=== PATIENT | male | born 1995 | race Caucasian/White ===

== ENCOUNTER 2017-08-28 10:18 | Emergency (ER) | payer OTHER ==
[~2017-08-28] VITALS: Ht 185.4 cm; Wt 65.0 kg
[2017-08-28 10:29] VITALS: BP 122/102; PULSE 115; RESP 20; TEMP 98.7; O2SAT 100
[2017-08-28 10:59] LABS: AUTOMATED NEUTROPHIL # 7.6 TH/MM3 (1.8-7.7); BASOPHIL # 0.1 TH/MM3 (0-0.2); BASOPHIL % 0.4 % (0.0-2.0); EOSINOPHIL # 0.1 TH/MM3 (0-0.4); EOSINOPHIL % 0.7 % (0.0-4.0); HEMATOCRIT 45.5 % (39.0-51.0); HEMOGLOBIN 15.1 GM/DL (13.0-17.0); MEAN CELL VOLUME 78.9 FL (80.0-100.0); MEAN CORPUSCULAR HEMOGLOBIN 26.2 PG (27.0-34.0); MEAN CORPUSCULAR HGB CONC 33.2 % (32.0-36.0); MEAN PLATELET VOLUME 7.8 FL (7.0-11.0); MONO % 7.7 % (0.0-8.0); MONOCYTE # 0.9 TH/MM3 (0-0.9); NEUT % 65.2 % (16.0-70.0); PLATELET COUNT 266 TH/MM3 (150-450); RED BLOOD COUNT 5.77 MIL/MM3 (4.50-5.90); RED CELL DISTRIBUTION WIDTH 14.9 % (11.6-17.2); WHITE BLOOD COUNT 11.6 TH/MM3 (4.0-11.0)
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
[2017-08-28 11:24] LABS: ALBUMIN 4.9 GM/DL (3.4-5.0); AST (GOT) 30 U/L (15-37); BLOOD UREA NITROGEN 19 MG/DL (7-18); CALCIUM 9.1 MG/DL (8.5-10.1); CHLORIDE 106 MEQ/L (98-107); CREATININE 1.54 MG/DL (0.60-1.30); GLOMERULAR FILTRATION RATE 56 ML/MIN (>89); GLUCOSE,RANDOM 108 MG/DL (74-106); SODIUM (NA) 142 MEQ/L (136-145)
[2017-08-28 11:27] LABS: ACETAMINOPHEN LESS THAN 2.0 MCG/ML (10.0-30.0); ALKALINE PHOSPHATASE 93 U/L (45-117); ALT (GPT) 24 U/L (12-78); TOTAL BILIRUBIN ADULT 0.6 MG/DL (0.2-1.0); TOTAL PROTEIN 8.4 GM/DL (6.4-8.2)
[2017-08-28 12:30] VITALS: BP 102/68; PULSE 85; RESP 19; O2SAT 98
[2017-08-28 13:57] LABS: BLOOD, URINE NEG (NEG); GLUCOSE,URINE NEG (NEG); HYALINE CAST, URINE 21 /lpf (RARE); KETONE, URINE 10 mg/dL (NEG); MUCUS URINE FEW /lpf (OCC); NITRITE,URINE NEG (NEG); PH, URINE 5.5 (5.0-8.5); SQUAMOUS EPITHELIAL CELL URINE <1 /hpf (0-5); URINE COLOR YELLOW (YELLW/STRAW); URINE LEUKOCYTE ESTERASE NEG (NEG)
[2017-08-28 14:01] LABS: BILIRUBIN, URINE NEG (NEG)
[2017-08-28] MEDS ORDERED: NICOTINE 21 MG/24 HR PATCH T-DERMAL ONE (14:30)
[2017-08-28] MEDS ORDERED: NAPROXEN 500 MG TAB PO ONE (17:30)
[2017-08-28 17:34] VITALS: BP 132/91; PULSE 110; RESP 18; O2SAT 100
--- NOTE | 2017-08-28 18:45 | PD ---
History of Present Illness Chief Complaint: Psychiatric Symptoms Time Seen by Provider: 18:30 Travel History International Travel<30 Days: No Contact w/Intl Traveler<30days: No Known affected area: No Legal Status Legal Status: Duggan Act D[employer] Act Signed By: Audra Wayne Dug[place] Act Comment: Officer Tran Meray # [id number] History of Present Illness: This is a 22-year-old single male who presents under a Duggan act to this facility for reportedly making suicidal gestures and statements. Patient has not been seen at this facility previously. Reviewed electronic medical records, labs, and discussed case with staff. PFSH Past Medical History Medical History: Denies Significant Hx Diminished Hearing: No Neurologic: Yes Migraines: Yes Tetanus Vaccination: < 5 Years Influenza Vaccination: Yes Psychiatric History Psychiatric History Hx Psychiatric Treatment: Pt states he had psychiatric care when he was a juvinelle because he was court ordered. History of Inpatient Treatment: No Social History Hx Alcohol Use: No Hx Tobacco Use: Yes (1 PPD) Hx Substance Use: Yes Substance Use Type: Marijuana, Amphetamines-Stimulants, Nicotine/Cigarettes Other Substances Used: Pt denies any past treatment Hx of Substance Use Treatment: No Allergies-Medications (Allergen,Severity, Reaction): Coded Allergies: No Known Allergies (Unverified , 08/28/17) Reported Meds & Prescriptions Reported Meds & Active Scripts Active No Active Prescriptions or Reported Medications MDM Medical Decision Making Medical Record Reviewed: Yes Assessment/Plan This is a 22-year-old single, male who presents under Duggan act to this facility for reportedly making suicidal gestures. Upon examination today patient is awake, alert and oriented 4. His speech is clear, logical, and organized. His mood and affect are slightly anxious although I attribute this to his being kept in J pod. There is no internal stimulation nor thought blocking. He denies suicidal ideation, homicidal ideation, auditory or visual hallucinations. I can elicit no delusional material. Patient does exhibit some cluster B type characteristics. Obtain corroborating information from patient's grandmother. Consulted with Dr. De La Torre as patient no longer meets Duggan act criteria. Dr. De La Torre agrees with my assessment and has lifted the Duggan act. Patient will be directed to follow-up at [facility] if he is to stay in the area. He has reported that he wants to return to [place]. He will be advised to return to this facility should his condition worsen. Orders Orders Complete Blood Count With Diff (08/28/17 10:27) Comprehensive Metabolic Panel (08/28/17 10:27) Urinalysis - C+S If Indicated (08/28/17 10:27) Psych Screen (08/28/17 10:27) Diet Regular Basic (08/28/17 Lunch) Drug Screen, Random Urine (08/28/17 10:27) Alcohol (Ethanol) (08/28/17 10:27) Salicylates (Aspirin) (08/28/17 10:) Tylenol (Acetaminophen) (08/28/17 10:) Nicotine 21 Mg Patch.24 Hr (Habitrol 21 (08/28/17 14:30) Diet Regular Basic (08/28/17 Dinner) Naproxen (Naprosyn) (08/28/17 17:30) Results Vital Signs Date Time Temp Pulse Resp B/P (MAP) Pulse Ox O2 Delivery O2 Flow Rate FiO2 08/28/17 17:34 110 18 132/91 (105) 100 Room Air 08/28/17 12:30 85 19 102/68 (79) 98 Room Air 08/28/17 10:29 98.7 115 20 122/102 (109) 100 Laboratory Tests Test 08/28/17 10:37 08/28/17 13:06 White Blood Count 11.6 Red Blood Count 5.77 Hemoglobin 15.1 Hematocrit 45.5 Mean Corpuscular Volume 78.9 Mean Corpuscular Hemoglobin 26.2 Mean Corpuscular Hemoglobin Concent 33.2 Red Cell Distribution Width 14.9 Platelet Count 266 Mean Platelet Volume 7.8 Neutrophils (%) (Auto) 65.2 Lymphocytes (%) (Auto) 26.0 Monocytes (%) (Auto) 7.7 Eosinophils (%) (Auto) 0.7 Basophils (%) (Auto) 0.4 Neutrophils # (Auto) 7.6 Lymphocytes # (Auto) 3.0 Monocytes # (Auto) 0.9 Eosinophils # (Auto) 0.1 Basophils # (Auto) 0.1 CBC Comment DIFF FINAL Differential Comment Blood Urea Nitrogen 19 Creatinine 1.54 Random Glucose 108 Total Protein 8.4 Albumin 4.9 Calcium Level 9.1 Alkaline Phosphatase 93 Aspartate Amino Transf (AST/SGOT) 30 Alanine Aminotransferase (ALT/SGPT) 24 Total Bilirubin 0.6 Sodium Level 142 Potassium Level 3.7 Chloride Level 106 Carbon Dioxide Level 25.0 Anion Gap 11 Estimat Glomerular Filtration Rate 56 Salicylates Level 3.1 Acetaminophen Level LESS THAN 2.0 Ethyl Alcohol Level LESS THAN 3 Urine Color YELLOW Urine Turbidity HAZY Urine pH 5.5 Urine Specific [place] 1.038 Urine Protein 30 Urine Glucose (UA) NEG Urine Ketones 10 Urine Occult Blood NEG Urine Nitrite NEG Urine Bilirubin NEG Urine Urobilinogen 2.0 Urine Leukocyte Esterase NEG Urine RBC 2 Urine WBC 2 Urine Squamous Epithelial Cells <1 Urine Hyaline Casts 21 Urine Mucus FEW Microscopic Urinalysis Comment CULT NOT INDICATED Urine Opiates Screen NEG Urine Barbiturates Screen NEG Urine Amphetamines Screen POS Urine Benzodiazepines Screen NEG Urine Cocaine Screen NEG Urine Cannabinoids Screen POS Diagnosis Primary Impression: Substance induced mood disorder Additional Impression: Personality disorder Psychiatrically Cleared: Yes Prescriptions No Active Prescriptions or Reported Meds Problem Qualifiers Tawnya Love August 28, 2017 18:45
--- NOTE | 2017-08-28 20:49 | PD ---
Physical Exam Date Seen by Provider: August 28, 2017 Time Seen by Provider: 20:47 Narrative GENERAL: This is a well-nourished, well-developed patient, in no apparent distress. SKIN: No rashes, ecchymoses or lesions. Warm and dry. HEAD: Atraumatic. Normocephalic. EYES: PERRL, EOMI, no discharge or injection. No scleral icterus. EARS: Clear NOSE: Nasal turbinates appear normal. THROAT: Mucosa pink and moist. Airway patent. NECK: Trachea midline. supple, moves head freely. LUNGS: Clear to auscultation. CV: Regular in rhythm. ABDOMEN: Soft nontender. EXT: No clubbing cyanosis or edema. Data Data Last Documented VS Vital Signs Date Time Temp Pulse Resp B/P (MAP) Pulse Ox O2 Delivery O2 Flow Rate FiO2 08/28/17 19:31 08/28/17 17:34 110 18 100 Room Air 08/28/17 10:29 98.7 Orders Orders Complete Blood Count With Diff (08/28/17 10:27) Comprehensive Metabolic Panel (08/28/17 10:27) Urinalysis - C+S If Indicated (08/28/17 10:27) Psych Screen (08/28/17 10:27) Diet Regular Basic (08/28/17 Lunch) Drug Screen, Random Urine (08/28/17 10:27) Alcohol (Ethanol) (08/28/17 10:27) Salicylates (Aspirin) (08/28/17 10:27) Tylenol (Acetaminophen) (08/28/17 10:27) Nicotine 21 Mg Patch.24 Hr (Habitrol 21 (08/28/17 14:30) Diet Regular Basic (08/28/17 Dinner) Naproxen (Naprosyn) (08/28/17 17:30) Labs Laboratory Tests Test 08/28/17 10:37 08/28/17 13:06 White Blood Count 11.6 TH/MM3 Red Blood Count 5.77 MIL/MM3 Hemoglobin 15.1 GM/DL Hematocrit 45.5 % Mean Corpuscular Volume 78.9 FL Mean Corpuscular Hemoglobin 26.2 PG Mean Corpuscular Hemoglobin Concent 33.2 % Red Cell Distribution Width 14.9 % Platelet Count 266 TH/MM3 Mean Platelet Volume 7.8 FL Neutrophils (%) (Auto) 65.2 % Lymphocytes (%) (Auto) 26.0 % Monocytes (%) (Auto) 7.7 % Eosinophils (%) (Auto) 0.7 % Basophils (%) (Auto) 0.4 % Neutrophils # (Auto) 7.6 TH/MM3 Lymphocytes # (Auto) 3.0 TH/MM3 Monocytes # (Auto) 0.9 TH/MM3 Eosinophils # (Auto) 0.1 TH/MM3 Basophils # (Auto) 0.1 TH/MM3 CBC Comment DIFF FINAL Differential Comment Blood Urea Nitrogen 19 MG/DL Creatinine 1.54 MG/DL Random Glucose 108 MG/DL Total Protein 8.4 GM/DL Albumin 4.9 GM/DL Calcium Level 9.1 MG/DL Alkaline Phosphatase 93 U/L Aspartate Amino Transf (AST/SGOT) 30 U/L Alanine Aminotransferase (ALT/SGPT) 24 U/L Total Bilirubin 0.6 MG/DL Sodium Level 142 MEQ/L Potassium Level 3.7 MEQ/L Chloride Level 106 MEQ/L Carbon Dioxide Level 25.0 MEQ/L Anion Gap 11 MEQ/L Estimat Glomerular Filtration Rate 56 ML/MIN Salicylates Level 3.1 MG/DL Acetaminophen Level LESS THAN 2.0 MCG/ML Ethyl Alcohol Level LESS THAN 3 MG/DL Urine Color YELLOW Urine Turbidity HAZY Urine pH 5.5 Urine Specific [place] 1.038 Urine Protein 30 mg/dL Urine Glucose (UA) NEG mg/dL Urine Ketones 10 mg/dL Urine Occult Blood NEG Urine Nitrite NEG Urine Bilirubin NEG Urine Urobilinogen 2.0 MG/DL Urine Leukocyte Esterase NEG Urine RBC 2 /hpf Urine WBC 2 /hpf Urine Squamous Epithelial Cells <1 /hpf Urine Hyaline Casts 21 /lpf Urine Mucus FEW /lpf Microscopic Urinalysis Comment CULT NOT INDICATED Urine Opiates Screen NEG Urine Barbiturates Screen NEG Urine Amphetamines Screen POS Urine Benzodiazepines Screen NEG Urine Cocaine Screen NEG Urine Cannabinoids Screen POS MDM Medical Record Reviewed: Yes Supervised Visit with INDY: Yes Interpretation(s) Laboratory Tests Test 08/28/17 10:37 08/28/17 13:06 White Blood Count 11.6 TH/MM3 Red Blood Count 5.77 MIL/MM3 Hemoglobin 15.1 GM/DL Hematocrit 45.5 % Mean Corpuscular Volume 78.9 FL Mean Corpuscular Hemoglobin 26.2 PG Mean Corpuscular Hemoglobin Concent 33.2 % Red Cell Distribution Width 14.9 % Platelet Count 266 TH/MM3 Mean Platelet Volume 7.8 FL Neutrophils (%) (Auto) 65.2 % Lymphocytes (%) (Auto) 26.0 % Monocytes (%) (Auto) 7.7 % Eosinophils (%) (Auto) 0.7 % Basophils (%) (Auto) 0.4 % Neutrophils # (Auto) 7.6 TH/MM3 Lymphocytes # (Auto) 3.0 TH/MM3 Monocytes # (Auto) 0.9 TH/MM3 Eosinophils # (Auto) 0.1 TH/MM3 Basophils # (Auto) 0.1 TH/MM3 CBC Comment DIFF FINAL Differential Comment Blood Urea Nitrogen 19 MG/DL Creatinine 1.54 MG/DL Random Glucose 108 MG/DL Total Protein 8.4 GM/DL Albumin 4.9 GM/DL Calcium Level 9.1 MG/DL Alkaline Phosphatase 93 U/L Aspartate Amino Transf (AST/SGOT) 30 U/L Alanine Aminotransferase (ALT/SGPT) 24 U/L Total Bilirubin 0.6 MG/DL Sodium Level 142 MEQ/L Potassium Level 3.7 MEQ/L Chloride Level 106 MEQ/L Carbon Dioxide Level 25.0 MEQ/L Anion Gap 11 MEQ/L Estimat Glomerular Filtration Rate 56 ML/MIN Salicylates Level 3.1 MG/DL Acetaminophen Level LESS THAN 2.0 MCG/ML Ethyl Alcohol Level LESS THAN 3 MG/DL Urine Color YELLOW Urine Turbidity HAZY Urine pH 5.5 Urine Specific [place] 1.038 Urine Protein 30 mg/dL Urine Glucose (UA) NEG mg/dL Urine Ketones 10 mg/dL Urine Occult Blood NEG Urine Nitrite NEG Urine Bilirubin NEG Urine Urobilinogen 2.0 MG/DL Urine Leukocyte Esterase NEG Urine RBC 2 /hpf Urine WBC 2 /hpf Urine Squamous Epithelial Cells <1 /hpf Urine Hyaline Casts 21 /lpf Urine Mucus FEW /lpf Microscopic Urinalysis Comment CULT NOT INDICATED Urine Opiates Screen NEG Urine Barbiturates Screen NEG Urine Amphetamines Screen POS Urine Benzodiazepines Screen NEG Urine Cocaine Screen NEG Urine Cannabinoids Screen POS Differential Diagnosis . Narrative Course This patient had been medically cleared by Dr. glass. He is also been seen and evaluated by the psych nurse practitioner and the Duggan act has been lifted. It is felt that the patient is not suffering from acute mental illness and does not require inpatient management. At this time they do not feel a Duggan act appropriate in the Duggan act has been lifted. Patient is given outpatient treatment information and is considered medically stable for discharge. Diagnosis Primary Impression: Substance induced mood disorder Additional Impression: Personality disorder Patient Instructions: General Instructions Departure Forms: Tests/Procedures Additional Instruction: Rest. Follow-up with the recommendations of the psych nurse practitioner. Return to the ER for any problems. Scripts No Active Prescriptions or Reported Meds Disposition: 01 DISCHARGE HOME Condition: Stable Orestes Parks August 28, 2017 20:49
== END 2017-08-28 19:50 | disposition home or self-care (01) ==
LOC: NEPD 10:18 → NEPJ 19:50
DX: F15.94 Other stimulant use, unspecified with stimulant-induced mood disorder (principal); F12.90 Cannabis use, unspecified, uncomplicated; F60.9 Personality disorder, unspecified; F17.200 Nicotine dependence, unspecified, uncomplicated
CPT/HCPCS: 80053; 80307; 81001; 85025; 99283